=== PATIENT | female | born 1995 ===

== ENCOUNTER → 2017-04-24 | Outpatient (CLI) | payer MEDICAID ==
[~2017-04-24] MED LIST: DERMOPLAST SPRA56 GM TP; LAN-O-SOOTHE7 GM TP; MOTRIN-DPS800 MG PO; NIPPLECREAM TP; TUCKS1 EACH TP; TYLENOL EXTRA500 M1 PO
== END | disposition home or self-care (01) ==
LOC: RAD.S 10:30
DX: Z36 Encounter for antenatal screening of mother (principal); Z3A.27 27 weeks gestation of pregnancy